=== PATIENT | male | born 1990 | race Caucasian/White ===

== ENCOUNTER 2016-12-14 01:06 | Inpatient (IN) | payer MEDICAID ==
[~2016-12-14] VITALS: Ht 170.2 cm; Wt 80.9 kg
[2016-12-14 02:09] LABS: BASOPHILS # (AUTO) 0.03 K/uL (0.00-0.20); BASOPHILS % (AUTO) 0.5 % (0.0-2.0); EOSINOPHILS % (AUTO) 1.49 % (1.0-6.0); HEMATOCRIT 40.8 % (41-53); HEMOGLOBIN 13.6 g/dL (13.5-17.5); LYMPHOCYTES # (AUTO) 2.9 K/uL (1.0-4.8); LYMPHOCYTES % (AUTO) 42.8 % (22.0-44.0); MEAN CORPUSCULAR HEMOGLOBIN 27.7 pg (26.0-34.0); MEAN CORPUSCULAR HGB CONC 33.4 G/dL (31.0-37.0); MEAN CORPUSCULAR VOLUME 83 fL (80-100); MONOCYTES # (AUTO) 0.6 K/uL (0.1-1.0); MONOCYTES % (AUTO) 8.3 % (2.0-9.0); NEUTROPHILS # (AUTO) 3.1 K/uL (1.8-7.7); NEUTROPHILS % (AUTO) 46.9 % (40.0-70.0); PLATELET COUNT (AUTO) 242 K/uL (150-450); RED BLOOD CELL COUNT(AUTO) 4.93 MIL/uL (4.50-5.90); RED CELL DISTRIBUTION WIDTH 13.4 % (11.5-14.5); WHITE BLOOD COUNT (AUTO) 6.7 K/uL (4.5-11.0)
[2016-12-14 02:18] LABS: ANION GAP 12 mmol/L (8-16); CALCIUM, TOTAL 8.9 mg/dL (8.8-10.5); CARBON DIOXIDE 26 mmol/L (22-29); CHLORIDE 106 mmol/L (98-107); CREATININE 1.03 mg/dL (0.60-1.30); GLOMERULAR FILTR. RATE CALC > 60 mL/min (>60); POTASSIUM 3.8 mmol/L (3.5-5.1); SODIUM SERUM 144 mmol/L (136-145); UREA NITROGEN, BLOOD 15 mg/dL (7-18)
[2016-12-14 02:24] LABS: ALANINE AMINOTRANSFERASE 30 U/L (12-78); ASPARTATE AMINOTRANSFERASE 16 U/L (15-37); BILIRUBIN,TOTAL 0.3 mg/dL (0.1-1.0); TOTAL PROTEIN, SERUM 7.5 g/dL (6.4-8.2)
[2016-12-14] MEDS ORDERED: HALOPERIDOL 5 MG TABLET PO PRN (03:30)
[2016-12-14] MEDS ORDERED: LORazepam 2 MG TABLET PO PRN (03:30)
[2016-12-14 16:14] VITALS: BP 135/84
[2016-12-14] MEDS ORDERED: BENZOCAINE/MENTHOL LOZENGE MM PRN (20:15)
[2016-12-14] MEDS ORDERED: ALBUTEROL SULFATE HFA 90 MCG/PUFF 8 GM INHALER IH PRN (20:15)
[2016-12-14] MEDS ORDERED: LOPERAMIDE HCL 2 MG CAPSULE PO PRN (20:15)
[2016-12-14] MEDS ORDERED: CloNIDine HCL 0.1 MG TABLET PO PRN (20:15)
[2016-12-14] MEDS ORDERED: MAG HYDROX/AL HYDROX/SIMETH ES 30 ML SUSPENSION UDCUP PO PRN (20:15)
[2016-12-14] MEDS ORDERED: ACETAMINOPHEN 325 MG TABLET PO PRN (20:15)
[2016-12-14] MEDS ORDERED: BACITRACIN 28.4 GM OINTMENT TP PRN (20:15)
[2016-12-14] MEDS ORDERED: IBUPROFEN 600 MG TABLET PO PRN (20:15)
[2016-12-14] MEDS ORDERED: PETROLATUM,WHITE 71 GM JELLY TP PRN (20:15)
[2016-12-14] MEDS ORDERED: ONDANSETRON HCL 4 MG TABLET PO PRN (20:15)
[2016-12-14] MEDS ORDERED: MAGNESIUM HYDROXIDE SUSPENSION 30 ML UDCUP PO PRN (20:15)
[2016-12-15 00:39] VITALS: BP 124/74
[2016-12-15 08:30] VITALS: BP 129/70
[2016-12-15] MEDS: CITALOPRAM HYDROBROMIDE 20 MG TABLET PO SCH (11:45)
[2016-12-15 16:17] VITALS: BP 112/68
[2016-12-15] MEDS: ZOLPIDEM TARTRATE 10 MG TABLET PO PRN (20:57)
[2016-12-16 00:36] VITALS: BP 115/66
[2016-12-16 08:21] VITALS: BP 135/87
[2016-12-16 08:39] LABS: BASOPHILS # (AUTO) 0.04 K/uL (0.00-0.20); BASOPHILS % (AUTO) 0.5 % (0.0-2.0); EOSINOPHILS # (AUTO) 0.09 K/uL (0.00-0.70); EOSINOPHILS % (AUTO) 1.13 % (1.0-6.0); HEMOGLOBIN 14.1 g/dL (13.5-17.5); LYMPHOCYTES # (AUTO) 3.8 K/uL (1.0-4.8); MEAN CORPUSCULAR HEMOGLOBIN 27.3 pg (26.0-34.0); MEAN CORPUSCULAR HGB CONC 32.8 G/dL (31.0-37.0); MEAN CORPUSCULAR VOLUME 83 fL (80-100); MONOCYTES # (AUTO) 0.8 K/uL (0.1-1.0); MONOCYTES % (AUTO) 10.1 % (2.0-9.0); NEUTROPHILS # (AUTO) 3.3 K/uL (1.8-7.7); NEUTROPHILS % (AUTO) 41.3 % (40.0-70.0); PLATELET COUNT (AUTO) 230 K/uL (150-450); RED BLOOD CELL COUNT(AUTO) 5.17 MIL/uL (4.50-5.90); RED CELL DISTRIBUTION WIDTH 13.7 % (11.5-14.5); WHITE BLOOD COUNT (AUTO) 8.1 K/uL (4.5-11.0)
[2016-12-16 08:42] LABS: ANION GAP 9 mmol/L (8-16); CARBON DIOXIDE 29 mmol/L (22-29); CHLORIDE 103 mmol/L (98-107); CREATININE 0.91 mg/dL (0.60-1.30); GLOMERULAR FILTR. RATE CALC > 60 mL/min (>60); PHOSPHORUS 3.8 mg/dL (2.5-4.9); POTASSIUM 4.3 mmol/L (3.5-5.1); SODIUM SERUM 141 mmol/L (136-145); UREA NITROGEN, BLOOD 16 mg/dL (7-18)
[2016-12-16] MEDS: CITALOPRAM HYDROBROMIDE 20 MG TABLET PO SCH (09:11)
[2016-12-16 17:40] VITALS: BP 131/79
[2016-12-16] MEDS: ZOLPIDEM TARTRATE 10 MG TABLET PO PRN (21:27)
[2016-12-17 06:07] VITALS: BP_SYST 101; BP_SYST 102; BP_DIAS 61
[2016-12-17 08:58] VITALS: BP 115/93
[2016-12-17] MEDS: CITALOPRAM HYDROBROMIDE 20 MG TABLET PO SCH (09:42)
[2016-12-17 12:44] VITALS: BP 131/66
[2016-12-17] MEDS ORDERED: CITA20TA9 PO (13:04)
== END 2016-12-17 14:15 | disposition home or self-care (01) | DRG 751 ==
LOC: EMS 01:08 → EEVIPCON 01:08 → B2S 13:52
DX: F33.2 Major depressive disorder, recurrent severe without psychotic features (principal); F29 Unspecified psychosis not due to a substance or known physiological condition; R45.851 Suicidal ideations; G47.00 Insomnia, unspecified; Z72.89 Other problems related to lifestyle; Z71.41 Alcohol abuse counseling and surveillance of alcoholic; Z72.0 Tobacco use
CPT/HCPCS: 83735; 84100; 99285; G0480